=== PATIENT | male | born 1965 | race African-American/Black ===

== ENCOUNTER 2017-09-22 20:30 | Emergency (ER) | payer OTHER ==
--- NOTE | 2017-09-22 20:43 | PDOC ---
Rapid Medical Evaluation Time Seen by Provider: 09/22/17 20:42 Medical Evaluation: Allergies Allergy/AdvReac Type Severity Reaction Status Date / Time No Known Allergies Allergy Verified 09/19/17 23:20 09/22/17 20:42 I have performed a brief in-person evaluation of this patient. The patient presents with a chief complaint of: second rabies vaccine Pertinent physical exam findings: no distress, no problem with wound I have ordered the following: rabies vaccine The patient will proceed to the ED for further evaluation. 09/22/17 20:45 Discharge Disposition - Diagnosis Rabies, need for prophylactic vaccination against - Referrals - Patient Instructions - Post Discharge Activity
[2017-09-22] MEDS ORDERED: RABIES VACCINE (PCEC)/PF 2.5 UNIT/VIAL IM ONE (20:44)
[2017-09-22 20:59] VITALS: BP 152/92; PULSE 60; TEMP 97.9; BMI 26.6
--- NOTE | 2017-09-22 21:07 | PDOC ---
History of Present Illness - General Chief Complaint: Revisit,Rabies Injection Stated Complaint: REVISIT Time Seen by Provider: 09/22/17 20:42 History Source: Patient Exam Limitations: No Limitations - History of Present Illness Initial Comments: 09/22/17 21:08 My chief complaint: Here for second rabies vaccine History of Present Illness: 09/20/17 06:37 52M with no pmh presents to emergency room for second rabies vaccine Pt. on around 6pm, as he was busy in a parking lot he felt something bite him in the back of the left leg. He was not able to turn quick enough to see source of the bite. He went to an urgent care center wound was cleansed the wound, he was than sent to [facility] for further eval. The center reported the bite to the [facility] however he was not sart on rabies seriies until seen here on 09/19/17. He is up to date with tetanus. 09/22/17 21:10 09/22/17 21:29 Timing/Duration: other (09/19/17 bite on left posterior calf by unknown type of animal (it was dark)) Severity: mild Associated Symptoms: reports: other (bite left posterior calf ) Past History - Past Medical History Allergies/Adverse Reactions: Allergies Allergy/AdvReac Type Severity Reaction Status Date / Time No Known Allergies Allergy Verified 09/22/17 20:57 Home Medications: Ambulatory Orders Amoxicillin/Potassium Clav [Augmentin 875-125 Tablet] 1 each PO BID #14 tablet 09/21/17 COPD: No - Suicide/Smoking/Psychosocial Hx Smoking History: Never smoked Have you smoked in the past 12 months: No Information on smoking cessation initiated: No Hx Alcohol Use: No Drug/Substance Use Hx: No Review of Systems - Review of Systems Able to Perform ROS?: Yes Constitutional: No: Symptoms Reported HEENTM: No: Symptoms Reported Respiratory: No: Symptoms reported Cardiac (ROS): No: Symptoms Reported ABD/GI: No: Symptoms Reported : No: Symptoms Reported Musculoskeletal: No: Symptoms Reported Integumentary: Yes: Other (bite by unknown animal 09/19/17 posterior left calf ) Neurological: No: Symptoms reported *Physical Exam - Vital Signs Last Vital Signs Temp Pulse Resp BP Pulse Ox 97.9 F 60 14 152/92 100 09/22/17 20:57 09/22/17 20:57 09/22/17 20:57 09/22/17 20:57 09/22/17 20:57 - Physical Exam General Appearance: Yes: Appropriately Dressed Vascular Pulses: Doralis-Pedis (L): 4+ Extremity: positive: Normal Capillary Refill, Normal Inspection, Normal Range of Motion (left leg at knee, ankle, ) Integumentary: positive: Other (posterior calf scabbed area linear with no surrounding erythema no tenderness) Neurologic: positive: Alert, Normal Response, Respond to painful stimul (left calf ), Responsive Medical Decision Making - Medical Decision Making 09/22/17 21:30 52M with no pmh presents to emergency room for second rabies vaccine Pt. on around 6pm, as he was busy in a parking lot he felt something bite him in the back of the left leg. He was not able to turn quick enough to see source of the bite. He went to an urgent care center wound was cleansed the wound, he was than sent to [facility] for further eval. The center reported the bite to the [facility] however he was not sart on rabies seriies until seen here on 09/19/17. He is up to date with tetanus. left calf animal bite here for second rabies vaccine PLAN: continue augmentin as ordered on 09/19/17 rabies vaccine 2.5 units im now rt. deltoid pt to return 09/26/17 for 3rd rabies vaccine , 10/03/17 for 4th rabies vaccine paper work for animal bite for [employer] filled out today, no form found in rabies book in [employer] 09/22/17 21:32 09/22/17 21:32 *DC/Admit/Observation/Transfer Diagnosis at time of Disposition: Rabies, need for prophylactic vaccination against - Discharge Dispostion Disposition: HOME Condition at time of disposition: Stable - Referrals - Patient Instructions Additional Instructions: RETURN HERE ON 09/26/17 FOR 3RD RABIES VACCINE OR SOONER IF ANY REDNESS AROUND WOUND OR FEVER Continue to take Augmentin as previously ordered Cleanse wound twice daily with antibacterial soap and water pat dry Patient voiced understanding of discharge instructions and all questions were answered - Post Discharge Activity
== END 2017-09-22 21:48 | disposition home or self-care (01) ==
LOC: JERFT 20:30
PROC: 3E0234Z Introduction of Serum, Toxoid and Vaccine into Muscle, Percutaneous Approach (ICD-10-PCS; principal; 2017-09-22)
DX: Z20.3 Contact with and (suspected) exposure to rabies (principal)
CPT/HCPCS: 90675; 99281-25

== ENCOUNTER 2017-10-03 19:48 | Emergency (ER) | payer OTHER ==
[2017-10-03 20:00] VITALS: BP 114/68; PULSE 64; TEMP 97.5; BMI 26.3
--- NOTE | 2017-10-03 20:00 | PDOC ---
Rapid Medical Evaluation Chief Complaint: Revisit,Rabies Injection Time Seen by Provider: 10/03/17 19:59 Medical Evaluation: Allergies Allergy/AdvReac Type Severity Reaction Status Date / Time No Known Allergies Allergy Verified 10/03/17 19:59 Vital Signs Temp Pulse Resp BP Pulse Ox 97.5 F L 64 18 114/68 99 10/03/17 19:55 10/03/17 19:55 10/03/17 19:55 10/03/17 19:55 10/03/17 19:55 10/03/17 20:00 I performed a brief in-person evaluation of this patient. The patient presents with a chief complaint of: here for rabies shot #4, bitten by a dog on 09/19/17 Pertinent physical exam findings: nad unlabored breathing I have ordered the following: rabies vaccine The patient will proceed to the Ed for further evaluation
[2017-10-03] MEDS ORDERED: RABIES VACCINE (PCEC)/PF 2.5 UNIT/VIAL IM ONE (20:01)
--- NOTE | 2017-10-03 20:07 | PDOC ---
History of Present Illness - General Chief Complaint: Revisit,Rabies Injection Stated Complaint: REVIST, RABIES SHOT Time Seen by Provider: 10/03/17 19:59 History Source: Patient Exam Limitations: No Limitations - History of Present Illness Initial Comments: 10/03/17 20:09 52-year-old male presents to the emergency department requesting for his 4th rabies vaccination after getting bit by an unknown insect. Patient denies any adverse reactions to the previous rabies vaccinations. Patient denies fever, chills, nausea/vomiting, chest pain, shortness of breath. Patient has no other complaints. Past History - Past Medical History Allergies/Adverse Reactions: Allergies Allergy/AdvReac Type Severity Reaction Status Date / Time No Known Allergies Allergy Verified 10/03/17 19:59 Home Medications: Ambulatory Orders Amoxicillin/Potassium Clav [Augmentin 875-125 Tablet] 1 each PO BID #14 tablet 09/21/17 COPD: No - Suicide/Smoking/Psychosocial Hx Smoking History: Never smoked Have you smoked in the past 12 months: No Hx Alcohol Use: No Drug/Substance Use Hx: No Review of Systems - Review of Systems Able to Perform ROS?: Yes Comments:: 10/03/17 20:09 CONSTITUTIONAL: Absent: fever, chills, diaphoresis, generalized weakness, malaise, loss of appetite HEENT: Absent: rhinorrhea, nasal congestion, throat pain, throat swelling, difficulty swallowing, mouth swelling, ear pain, eye pain, visual Changes CARDIOVASCULAR: Absent: chest pain, loss of consciousness, palpitations, irregular heart rate, peripheral edema RESPIRATORY: Absent: cough, shortness of breath, dyspnea with exertion, orthopnea, wheezing, stridor, hemoptysis GASTROINTESTINAL: Absent: abdominal pain, abdominal distension, nausea, vomiting, diarrhea, constipation, melena, hematochezia GENITOURINARY: Absent: dysuria, frequency, urgency, hesitancy, hematuria, flank pain, genital pain MUSCULOSKELETAL: Absent: myalgia, arthralgia, joint swelling SKIN: Absent: rash, itching, pallor HEMATOLOGIC/IMMUNOLOGIC: Absent: easy bleeding, easy bruising, lymphadenopathy, frequent infections ENDOCRINE: Absent: unexplained weight gain, unexplained weight loss, heat intolerance, cold intolerance NEUROLOGIC: Absent: headache, focal weakness or paresthesias, dizziness, unsteady gait, seizure, mental status changes, bladder or bowel incontinence PSYCHIATRIC: Absent: anxiety, depression, suicidal or homicidal ideation, hallucinations. Is the patient limited Vincentian proficient: No *Physical Exam - Vital Signs Last Vital Signs Temp Pulse Resp BP Pulse Ox 97.5 F L 64 18 114/68 99 10/03/17 19:55 10/03/17 19:55 10/03/17 19:55 10/03/17 19:55 10/03/17 19:55 - Physical Exam Comments: 10/03/17 20:09 GENERAL: Well developed, well nourished. Awake and alert. No acute distress. HEENT: Normocephalic, atraumatic. PERRLA, EOMI. No conjunctival pallor. Sclera are non- icteric. Moist mucous membranes. Oropharynx is clear. NECK: Supple. Full ROM. No JVD. Carotid pulses 2+ and symmetric, without bruits. No thyromegaly. No lymphadenopathy. CARDIOVASCULAR: Regular rate and rhythm. No murmurs, rubs, or gallops. Distal pulses are 2+ and symmetric. PULMONARY: No evidence of respiratory distress. Lungs clear to auscultation bilaterally. No wheezing, rales or rhonchi. ABDOMINAL: Soft. Non-tender. Non-distended. No rebound or guarding. No organomegaly. Normoactive bowel sounds. MUSCULOSKELETAL Normal range of motion at all joints. No bony deformities or tenderness. No CVA tenderness. EXTREMITIES: No cyanosis. No clubbing. No edema. No calf tenderness. SKIN: Warm and dry. Normal capillary refill. No rashes. No jaundice. NEUROLOGICAL: Alert, awake, appropriate. Cranial nerves 2-12 intact. No deficits to light touch and temperature in face, upper extremities and lower extremities. No motor deficits in the in face, upper extremities and lower extremities. Normoreflexic in the upper and lower extremities. Normal speech. Toes are down- going bilaterally. Gait is normal without ataxia. PSYCHIATRIC: Cooperative. Good eye contact. Appropriate mood and affect. *DC/Admit/Observation/Transfer Diagnosis at time of Disposition: Need for post exposure prophylaxis for rabies - Discharge Dispostion Disposition: HOME Condition at time of disposition: Stable Admit: No - Referrals - Patient Instructions Printed Discharge Instructions: DI for Rabies Vaccine Additional Instructions: Return to the ER as needed - Post Discharge Activity
== END 2017-10-03 20:35 | disposition home or self-care (01) ==
LOC: JERFT 19:48
PROC: 3E0234Z Introduction of Serum, Toxoid and Vaccine into Muscle, Percutaneous Approach (ICD-10-PCS; principal; 2017-10-03)
DX: Z20.3 Contact with and (suspected) exposure to rabies (principal)
CPT/HCPCS: 90675; 99281-25

== ENCOUNTER 2023-09-04 21:22 | Emergency (ER) | payer BC ==
[2023-09-04 21:46] VITALS: BP 123/78; PULSE 84; RESP 18; TEMP 97.8; BMI 27.3
[2023-09-04] MEDS ORDERED: FAMOTIDINE 20 MG/50 ML IVPB 20 MG/50 ML MG IVPB ONE ×2 (22:21→22:30)
[2023-09-04] MEDS ORDERED: methylPREDNISolone NA SUCC 125 MG/2 ML VIAL IVPB ONE (22:21)
[2023-09-04] MEDS ORDERED: methylPREDNISolone NA SUCC 125 MG/2 ML VIAL ONE (22:30)
== END 2023-09-05 00:31 | disposition home or self-care (01) ==
LOC: JER 21:22 → JERFT 21:22 → JER 09-05 00:31
PROC: 3E033GC Introduction of Other Therapeutic Substance into Peripheral Vein, Percutaneous Approach (ICD-10-PCS; principal; 2023-09-04)
PROC: 3E033GC Introduction of Other Therapeutic Substance into Peripheral Vein, Percutaneous Approach (ICD-10-PCS; 2023-09-04)
PROC: 3E033GC Introduction of Other Therapeutic Substance into Peripheral Vein, Percutaneous Approach (ICD-10-PCS; 2023-09-04)
DX: R21 Rash and other nonspecific skin eruption (principal); T78.40XA Allergy, unspecified, initial encounter